=== PATIENT | female | born 1945 | race Caucasian/White ===

== ENCOUNTER 2017-03-01 22:10 | Inpatient (IN) | payer OTHER ==
[~2017-03-01] VITALS: Ht 167.6 cm; Wt 120.0 kg
[~2017-03-01 22:10] MED LIST: ANALGESIC325 MG PO; AVAPRO75 MG PO; CHLORASEPTIC S180 ML MM; CIPRO500 MG PO; CYANOCOBALAM1000 MCG PO; ERGOCALCIF50000 UNIT PO; HYDRODIURIL,O12.5 M2 PO; IRON325 M1 PO; LIPITOR40 MG PO; PREVACID15 MG PO; SYNTHROID88 MCG PO; TOPROL XL50 MG PO; TUMS500 MG PO; TYLENOL EXTRA500 MG PO; Toprol XL PO; VOLTAREN XR100 MG PO
[2017-03-02 16:58] VITALS: BP 148/72
[2017-03-02 19:19] VITALS: BP 172/78
[2017-03-02 23:41] VITALS: BP 149/68
[2017-03-03 04:27] VITALS: BP 137/63
[2017-03-03 06:21] LABS: HEMATOCRIT 34.5 % (36.0-46.0); MCV 94.5 FL (83-99)
[2017-03-03 06:40] LABS: ANION GAP 11 MEQ/L (2-14); CHLORIDE 101 MEQ/L (99-109); GFR ESTIMATE (CALCULATED) > 59 mL/min/; GLUCOSE 107 mg/dL (70-99); POTASSIUM 4.7 MEQ/L (3.7-5.4); SAMPLE HEMOLYSIS CHECK 2; SAMPLE ICTERIC CHECK 0; SAMPLE LIPEMIA CHECK 0; SODIUM 140 MEQ/L (136-147); UREA NITROGEN (BUN) 10 mg/dL (9-23)
[2017-03-03 07:19] VITALS: BP 134/64
[2017-03-03] MEDS ORDERED: ELIQUIS2.5 MG PO (11:03)
[2017-03-03] MEDS ORDERED: ONDANSETRON ODT4 MG PO (11:03)
[2017-03-03] MEDS ORDERED: CELECOXIB200 MG PO (11:03)
[2017-03-03] MEDS ORDERED: SENNA PLUS TAB1 EACH PO (11:03)
[2017-03-03] MEDS ORDERED: OXYCODONE HCL5 MG PO (11:03)
[2017-03-03 11:20] VITALS: BP 139/63
[2017-03-03 16:21] VITALS: BP 157/66
[2017-03-03 23:20] VITALS: BP 148/65
[2017-03-04 06:17] LABS: HEMATOCRIT 27.7 % (36.0-46.0)
[2017-03-04 07:52] VITALS: BP 178/72
== END 2017-03-04 13:31 | DRG 470 ==
LOC: ENRESERV 22:10 → 2SOUTH 03-02 06:46 → ENRESERV 03-02 14:59 → 3EAST 03-02 16:43
PROVIDERS: Orthopaedic Surgery
PROC: 0SRD0J9 Replacement of Left Knee Joint with Synthetic Substitute, Cemented, Open Approach (ICD-10-PCS; principal; 2017-03-02)
DX: M17.12 Unilateral primary osteoarthritis, left knee (principal); I10 Essential (primary) hypertension; E53.8 Deficiency of other specified B group vitamins; R73.03 Prediabetes; E78.5 Hyperlipidemia, unspecified; E03.9 Hypothyroidism, unspecified; E66.01 Morbid (severe) obesity due to excess calories; Z68.41 Body mass index [BMI] 40.0-44.9, adult; L90.0 Lichen sclerosus et atrophicus; K58.9 Irritable bowel syndrome, unspecified
CPT/HCPCS: 80048; 85014; 85018; 97530 GO; C1713; J0131; J0690; J1170; J1885; J2250; J2405; J2795; J7050; L1820; Q0175